=== PATIENT | female | born 1950 | race Caucasian/White ===

== ENCOUNTER 2021-03-14 23:22 | Emergency (ER) | payer OTHER ==
[~2021-03-14] VITALS: Ht 154.9 cm; Wt 72.6 kg
[2021-03-15] MEDS ORDERED: ALPRAZolam 0.5 MG TAB PO ONE ×2 (03:30→19:30)
[2021-03-15] MEDS ORDERED: ACETAMINOPHEN 500 MG TAB PO ONE ×2 (03:45→10:15)
[2021-03-15 04:36] LABS: Basophils # (auto) 0 10 ^3/uL (0-0.2); Basophils % (auto) 0.4 % (0.0-2.0); Eosinophils # (auto) 0.1 10 ^3/uL (0-0.8); Eosinophils % (auto) 1.4 % (0.0-7.0); Hematocrit 40.3 % (36.0-46.0); Hemoglobin 13.3 g/dL (12.2-16.2); Lymphocytes # (auto) 1.1 10 ^3/uL (0.4-5.4); Lymphocytes % (auto) 17.8 % (10.0-50.0); Mean Corpuscular Hemoglobin 28.9 pg (28.0-32.0); Mean Corpuscular Hgb Conc. 33.1 g/dL (32.0-36.0); Mean Corpuscular Volume 87.5 fL (80.0-100.0); Monocytes # (auto) 0.6 10 ^3/uL (0-1.3); Monocytes % (auto) 9.9 % (0.0-12.0); Neutrophils # (auto) 4.4 10 ^3/uL (1.6-8.6); Neutrophils % (auto) 70.5 % (37.0-80.0); Red Cell Distribution Width 14.4 % (11.8-14.3); White Blood Cell 6.2 10^3/uL (4.4-10.8)
[2021-03-15 04:57] LABS: Chloride 106 mmol/L (98-107); Potassium 4.1 mmol/L (3.5-5.1); Sodium 138 mmol/L (136-145)
[2021-03-15 05:02] LABS: Alanine Aminotransferase 34 U/L (13-56); Albumin 3.9 g/dL (3.4-5.0); Alkaline Phosphatase 152 U/L (45-117); Anion Gap 11 (5-15); Aspartate Aminotransferase 21 U/L (15-37); BUN/Creatinine Ratio 28.2; Bilirubin, Total 0.4 mg/dL (0.2-1.0); Blood Alcohol < 3.0 mg/dL (0-5); Blood Urea Nitrogen 22 mg/dL (7-18); Calcium 9.1 mg/dL (8.5-10.1); Carbon Dioxide 21 mmol/L (21-32); GFR African American 94 mL/min; GFR Non-African American 78 mL/min; Glucose 91 mg/dL (74-106); Total Protein 7.8 g/dL (6.4-8.2)
[2021-03-15] MEDS ORDERED: diphenhdrAMINE HCL 25 MG CAP PO ONE (10:15)
[2021-03-15] MEDS ORDERED: diazePAM 5 MG TAB PO ONE (15:30)
[2021-03-15] MEDS ORDERED: ALPRAZolam 0.5 MG TAB ONE (19:41)
[2021-03-15] MEDS ORDERED: diphenhdrAMINE HCL 50 MG/1 ML VL ONE (19:52)
[2021-03-15] MEDS ORDERED: LORazepam 2MG/ML-1ML VIAL ONE (19:52)
[2021-03-15] MEDS ORDERED: diphenhdrAMINE HCL 50 MG/1 ML VL IM ONE (20:00)
[2021-03-15] MEDS ORDERED: LORazepam 2MG/ML-1ML VIAL IM ONE (20:00)
[2021-03-16] MEDS ORDERED: diphenhdrAMINE HCL 50 MG/1 ML VL IM ONE (07:45)
[2021-03-16] MEDS ORDERED: HALOPERIDOL LACTATE 5 MG/ML INJ VIAL IM ONE (07:45)
[2021-03-16] MEDS ORDERED: ACETAMINOPHEN 500 MG TAB PO ONE (08:30)
[2021-03-16 08:33] LABS: Urine Bacteria NONE SEEN /hpf (None Seen); Urine Blood Negative /uL (Negative); Urine Hyaline Cast FEW /lpf (0 - 2); Urine Mucus MANY (None Seen); Urine Specific Gravity 1.023 (1.001-1.035); Urine WBC 15 /hpf (0 - 5)
[2021-03-16 08:51] LABS: Amphetamine Screen, Urine NEGATIVE (NEGATIVE); Barbiturate Scree,Urine NEGATIVE (NEGATIVE); Benzodiazephine Screen, Urine POSITIVE (NEGATIVE); Cannabinoid Screen, Urine NEGATIVE (NEGATIVE); Cocaine Screen, Urine NEGATIVE (NEGATIVE); Opiate Scree,Urine NEGATIVE (NEGATIVE); Phencyclidine Screen, Urine NEGATIVE (NEGATIVE)
[2021-03-16] MEDS ORDERED: CIPROFLOXACIN HCL 500 MG TAB PO ONE (10:00)
[2021-03-16] MEDS ORDERED: IBUPROFEN 600 MG TAB PO ONE ×2 (14:00→21:45)
[2021-03-16] MEDS: hydrOXYchloroQUINE SULFATE 200 MG TAB PO SCH (21:28)
[2021-03-16] MEDS: CELECOXIB 100 MG CAP PO SCH (21:28)
[2021-03-17] MEDS ORDERED: diphenhdrAMINE HCL 25 MG CAP PO ONE (01:00)
[2021-03-17] MEDS ORDERED: ACETAMINOPHEN 325 MG TAB PO ONE (01:00)
[2021-03-17] MEDS: LEVOTHYROXINE SODIUM 25 MCG TAB PO SCH (08:45)
[2021-03-17] MEDS ORDERED: ACETAMINOPHEN 500 MG TAB PO ONE (13:15)
[2021-03-17] MEDS: hydrOXYchloroQUINE SULFATE 200 MG TAB PO SCH (13:29)
[2021-03-17] MEDS: CELECOXIB 100 MG CAP PO SCH (13:29)
[2021-03-18] MEDS: CELECOXIB 100 MG CAP PO SCH ×2 (00:14→16:59)
[2021-03-18] MEDS: hydrOXYchloroQUINE SULFATE 200 MG TAB PO SCH ×2 (00:14→17:27)
[2021-03-18] MEDS ORDERED: ACETAMINOPHEN 500 MG TAB PO ONE (02:30)
[2021-03-18] MEDS ORDERED: LEVOTHYROXINE SODIUM 25 MCG TAB ONE (16:48)
[2021-03-18] MEDS: LEVOTHYROXINE SODIUM 25 MCG TAB PO SCH (16:59)
[2021-03-18] MEDS ORDERED: LEVOTHYROXINE SODIUM 25 MCG TAB PO ONE (17:15)
[2021-03-19] MEDS ORDERED: ACETAMINOPHEN 325 MG TAB PO ONE (06:30)
[2021-03-19] MEDS: LEVOTHYROXINE SODIUM 25 MCG TAB PO SCH (07:00)
[2021-03-19] MEDS ORDERED: ALBU108A5 INH (10:34)
[2021-03-19] MEDS ORDERED: ESCI-34 PO (10:36)
[2021-03-19] MEDS ORDERED: CELE1CAP8 PO (10:37)
[2021-03-19] MEDS ORDERED: LEV25T PO (10:37)
[2021-03-19] MEDS ORDERED: HYDR200T36 PO (10:37)
[2021-03-19] MEDS: CELECOXIB 100 MG CAP PO SCH ×4 (13:41→14:56)
[2021-03-19] MEDS: hydrOXYchloroQUINE SULFATE 200 MG TAB PO SCH (14:07)
[2021-03-19 14:50] VITALS: BP 162/79
== END 2021-03-19 17:57 | disposition home or self-care (01) ==
LOC: EDBD 23:22 → ER 23:22
DX: M54.50 Low back pain, unspecified (principal); F23 Brief psychotic disorder; Z20.822 Contact with and (suspected) exposure to COVID-19
CPT/HCPCS: 36415; 70450; 71046; 72131; 80053; 80307; 80320; 81001; 84443; 85025; 87426; 96372; 99285; C9803; U0003